=== PATIENT | female | born 1950 | race Caucasian/White ===

== ENCOUNTER 2017-04-18 10:56 | Emergency (ER) | payer MEDICARE, OTHER ==
[~2017-04-18] VITALS: Ht 162.6 cm; Wt 85.8 kg
[~2017-04-18 10:56] MED LIST: ASPI81CH7 CHEW; CYCL1TAB29 PO; LISI20TA PO; MOBI15TA PO; PROT40TA PO
[2017-04-18 10:59] VITALS: BP 166/81; PULSE 63; RESP 16; TEMP 97.8; O2SAT 97
--- NOTE | 2017-04-18 11:20 | PD ---
HPI Chief Complaint: Musculoskeletal Complaint Time Seen by Provider: 11:06 Travel History International Travel<30 days: No Contact w/Intl Traveler<30days: No Traveled to known affect area: No History of Present Illness HPI 66 year-old male presents to the emergency room for evaluation of right knee pain after slipping earlier today. Patient slipped on a curb but did not actually fall as she was able to catch herself. She cannot describe exactly what happened to her right knee but states she had immediate pain. Pain is described as a burning sensation below the kneecap. She has radiation down her right lower leg. She has not taken anything for symptoms. She has been ambulatory since injury. Denies paresthesias. PFSH Past Medical History Arthritis: Yes (KNEES) Heart Rhythm Problems: Yes Cardiac Catheterization: No Cardiovascular Problems: Yes (IRREGULAR HEART BEAT) High Cholesterol: No Congestive Heart Failure: No Diabetes: No Diminished Hearing: No GERD: Yes Heparin Induced Thrombocytopen: No Hypertension: Yes Immunizations Current: Yes Myocardial Infarction: No Tetanus Vaccination: < 5 Years Influenza Vaccination: No ?: Not Menopausal: Yes : 1 Para: 1 Miscarriage: 0 : 0 Past Surgical History Cholecystectomy: Yes Coronary Artery Bypass Graft: No Neurologic Surgery: Yes (PINCH NERVE LEFT ELBOW REMOVED AND REPLACED NERVE) Other Surgery: Yes (NERVE IN ELBOW REPAIRED) Family History Family Myocardial Infarction: Yes (FATHER) Social History Alcohol Use: Yes (RARELY) Tobacco Use: No ( A TEEN) Substance Use: No Allergies-Medications (Allergen,Severity, Reaction): Coded Allergies: No Known Allergies (Unverified , 04/18/17) Reported Meds & Prescriptions Reported Meds & Active Scripts Active Reported Protonix (Pantoprazole Sodium) 40 Mg Tab 40 Mg PO DAILY Mobic (Meloxicam) 15 Mg Tab 15 Mg PO DAILY Lisinopril-Hctz 20-12.5 Mg Tab 1 Tab PO DAILY Aspirin Children's (Aspirin) 81 Mg Chew 81 Mg CHEW DAILY Review of Systems Except as stated in HPI: all other systems reviewed are Neg Physical Exam Narrative GENERAL: Well-nourished, well-developed female in no acute distress. Afebrile. Ambulatory. SKIN: Focused skin assessment warm/dry. No erythema or ecchymosis. HEAD: Normocephalic. EYES: No scleral icterus. No injection or drainage. NECK: Supple, trachea midline. No JVD or lymphadenopathy. CARDIOVASCULAR: Regular rate and rhythm without murmurs, gallops, or rubs. RESPIRATORY: Breath sounds equal bilaterally. No accessory muscle use. MUSCULOSKELETAL: No cyanosis. No edema or effusion noted. No bony tenderness to palpation. 2+ dorsalis pedis pulse. Full range of motion of the right knee. Pain with varus stress. Negative anterior and posterior drawer tests. Data Data Last Documented VS Vital Signs Date Time Temp Pulse Resp B/P (MAP) Pulse Ox O2 Delivery O2 Flow Rate FiO2 04/18/17 10:59 97.8 63 16 166/81 (109) 97 Orders Orders Knee, Complete (4vws) (04/18/17 ) [facility] Medical Decision Making Medical Screen Exam Complete: Yes Emergency Medical Condition: Yes Medical Record Reviewed: Yes Differential Diagnosis Fall on sidewalk curb, sprain, strain, spasm Narrative Course 66-year-old female presents to the emergency room for evaluation of right knee pain after injuring it just prior to arrival. Patient slipped on a curb but did not actually fall she was able to catch herself. She isn't sure if she twisted her knee. She had immediate pain but has been able to ambulate. She has not taken anything for symptoms. Physical exam of the right knee is unremarkable. There is no erythema, ecchymosis, edema, effusion, or bony tenderness to palpation. She has full range of motion. It is neurovascularly intact with 2+ dorsalis pedis pulse. Patient was informed that she likely has internal derangement and that will not show up on x-ray. She requested to have an x-ray regardless. X-ray is negative. She was told to follow-up with orthopedist if symptoms persist or return for worsening symptoms. She understands and agrees to plan. Diagnosis Primary Impression: Right knee sprain Qualified Codes: S83.91XA - Sprain of unspecified site of right knee, initial encounter Referrals: Primary Care Physician Additional Instructions: Rest and drink plenty of fluids. Take ibuprofen with food as directed, as needed for pain. Apply ice to the affected area for 20 minutes at a time, as needed for pain and swelling. Follow-up with a primary care physician. Return to the emergency room for worsening symptoms. Med/Other Pt SpecificInfo: Prescription(s) given Disposition: 01 DISCHARGE HOME Condition: Stable Waseca,Magdalena PA Apr 18, 2017 11:20
--- NOTE | 2017-04-18 11:58 | RADRPT ---
EXAM DATE/TIME: 04/18/2017 11:39 [facility] COMPARISON: KNEE RIGHT COMPLETE (4VWS), July 02, 2015, 18:47. INDICATIONS : Twist injury to right knee MEDICAL HISTORY : None. SURGICAL HISTORY : None. ENCOUNTER: Initial ACUITY: 1 day PAIN SCORE: 6/10 LOCATION: Right knee FINDINGS: No fracture or subluxation seen of the right knee. Any joint effusion appears to be very small. Moder ate osteoarthritis again noted of the medial and patellofemoral compartments. CONCLUSION: Intact right knee. No significant joint effusion seen. Moderate medial and patellofemoral compartment osteoarthritis. Lennox Marvin MD on April 18, 2017 at 11:55 Board Certified Radiologist. This report was verified electronically.
== END 2017-04-18 12:20 | disposition home or self-care (01) ==
LOC: PHEFT 10:56
DX: S83.91XA Sprain of unspecified site of right knee, initial encounter (principal); W18.49XA Other slipping, tripping and stumbling without falling, initial encounter
CPT/HCPCS: 73564; 99283

== ENCOUNTER 2017-11-17 09:03 | Emergency (ER) | payer OTHER ==
[~2017-11-17] VITALS: Ht 160 cm; Wt 89.4 kg
[~2017-11-17 09:03] MED LIST changes: -CYCL1TAB29 PO
[2017-11-17 09:05] VITALS: BP 173/89; PULSE 62; RESP 16; TEMP 97.7; O2SAT 99
[2017-11-17] MEDS ORDERED: ACETAMINOPHEN 500 MG CPLT PO ONE (09:45)
[2017-11-17] MEDS ORDERED: IBUPROFEN 400 MG TAB PO ONE (09:45)
--- NOTE | 2017-11-17 10:08 | PD ---
HPI Chief Complaint: Injury Time Seen by Provider: 09:30 Travel History International Travel<30 days: No Contact w/Intl Traveler<30days: No Traveled to known affect area: No History of Present Illness HPI 67-year-old woman who presents to the emergency department complaining of left knee pain. States today she tripped and fell causing a twisting injury to her left knee. She did not directly fall on it. She has pain on the lateral aspect of the knee. She does a lot of trouble with her knees normally, especially the right knee, which she treats to arthritis. No other recent injuries. She otherwise has been feeling generally well and healthy. No other complaints. History Past Medical History Narrative Medical Hypertension GERD Menopausal: Yes : 1 Para: 1 Social History Alcohol Use: Yes (RARELY) Tobacco Use: No ( A TEEN) Allergies-Medications (Allergen,Severity, Reaction): Coded Allergies: No Known Allergies (Unverified Adverse Reaction, Unknown, 11/17/17) Reported Meds & Prescriptions Reported Meds & Active Scripts Active Reported Protonix (Pantoprazole Sodium) 40 Mg Tab 40 Mg PO DAILY Mobic (Meloxicam) 15 Mg Tab 15 Mg PO DAILY Lisinopril-Hctz 20-12.5 Mg Tab 1 Tab PO DAILY Review of Systems Except as stated in HPI: all other systems reviewed are Neg Physical Exam Narrative GENERAL: Well-appearing 67-year-old woman, no acute distress per SKIN: Warm and dry. CARDIOVASCULAR: Warm and well perfused. RESPIRATORY: Normal rate and effort. MUSCULOSKELETAL: Focused examination of the lower extremities reveals normal appearance of both knees without effusion ecchymosis bruising or abrasion. She is full active and passive range of motion of both knees. Focused examination of the left knee reveals some tenderness over the lateral joint space. She has pain with axial loading of the knee. I do not feel any ligamentous instability in the knee compared to the right. No effusion. NEUROLOGICAL: Awake and alert. No gross deficits. Data Data Last Documented VS Vital Signs Date Time Temp Pulse Resp B/P (MAP) Pulse Ox O2 Delivery O2 Flow Rate FiO2 11/17/17 09:05 97.7 62 16 173/89 (117) 99 Orders Orders Knee, Complete (4vws) (11/17/17 ) Ibuprofen (Motrin) (11/17/17 09:45) Acetaminophen (Tylenol) (11/17/17 09:45) [facility] Medical Decision Making Medical Screen Exam Complete: Yes Emergency Medical Condition: Yes Interpretation(s) Left knee x-ray: Moderate osteoarthritis, no fracture. Differential Diagnosis Knee injury, lateral collateral ligament injury, posterior corner injury, meniscal injury, fracture, other Narrative Course Medical decision making INITIAL: This 67-year-old woman presents to the emergency department complaining of left knee pain after twisting injury this morning. Suspect collateral ligament injury or meniscal injury. There is no effusion to suggest significant intra-articular derangement. Will check x-ray. We will plan on Paulie wrap, weight-bear as tolerated, outpatient follow-up. Diagnosis Primary Impression: Left lateral knee pain Additional Instructions: Use Paulie wrap as needed for comfort. Continue current medications. Follow-up with your primary physician or orthopedic physician for further evaluation if symptoms persist. Med/Other Pt SpecificInfo: No Change to Meds Disposition: 01 DISCHARGE HOME Condition: Stable Kemal Gimenez MD Nov 17, 2017 10:07
--- NOTE | 2017-11-17 10:47 | RADRPT ---
EXAM DATE/TIME: 11/17/2017 10:16 [facility] COMPARISON: No previous studies available for comparison. INDICATIONS : Fall, left lateral knee pain. MEDICAL HISTORY : None. SURGICAL HISTORY : left knee meniscus repair ENCOUNTER: Initial ACUITY: 1 day PAIN SCORE: 2/10 LOCATION: Left lateral knee FINDINGS: Four view examination of the left knee demonstrates moderate osteoarthritis with joint space narrowin g, sclerosis and osteophyte formation medially. No acute fracture or dislocation. CONCLUSION: 1. Moderate osteoarthritis of the left knee. No acute bony abnormalities. Jens Sousa MD on November 17, 2017 at 10:42 Board Certified Radiologist. This report was verified electronically.
== END 2017-11-17 11:28 | disposition home or self-care (01) ==
LOC: PHEFT 09:03
DX: M25.562 Pain in left knee (principal); K21.9 Gastro-esophageal reflux disease without esophagitis; I10 Essential (primary) hypertension
CPT/HCPCS: 73564; 99283